=== PATIENT | female | born 1975 | race Caucasian/White ===

== ENCOUNTER 2016-12-12 14:05 | Outpatient (CLI) | payer OTHER ==
[~2016-12-12 14:05] MED LIST: ACETAMINOPHEN325 MG PO; BENADRYL25 MG PO; CLINICAL NUTRIENTS P OP; IBUPROFEN600 MG PO; IRON325 MG PO; LAMOTRIGINE ER100 MG PO; NICOTINE T7 MG/24 HR TOP; OXYCODONE IR PO; PERCOCET1 TA1 PO; TUMS500 MG PO; VENTOLIN HFA IN; VICODIN EQUIVAL1 TAB PO; XANAX0.5 MG PO; percocet PO
--- NOTE | 2016-12-12 14:49 | DIAGNOSTIC IMAGING REPORT ---
PROCEDURE: US COMPLETE PELVIC W/TRANSVAG INDICATION: PELVIC PAIN TECHNIQUE: Transabdominal and endovaginal hirsch scale and color Doppler sonographic images of the female pelvis were obtained. COMPARISON: Pelvic ultrasound 07/11 FINDINGS: TRANSABDOMINAL SCANS: The uterus is of normal size 5.9 x 4.3 cm Kidneys are normal. TRANSVAGINAL SCANS: The uterus is anteverted. Myometrium is normal. Focal areas of calcification are seen in the uterine fundus. The endometrium measures eight mm. Right ovary is normal measuring 2.8 x 2.3 x 2.1 cm. There is a 2 cm follicle on the right ovary. Good flow was noted. The left ovary is surgically absent. There is fluid filled bowel in the left adnexal region and peristalsis was visualized. IMPRESSION: 1. Normal uterus and ovaries and kidneys.
[2017-02-28] MEDS ORDERED: CHANTIX STARTIN0.5 & (16:43)
[2017-02-28] MEDS ORDERED: SUMATRIPTAN SU100 MG (16:43)
== END 2016-12-12 23:00 ==
LOC: US SRH 14:05
DX: N93.9 Abnormal uterine and vaginal bleeding, unspecified (principal)

== ENCOUNTER 2017-03-01 14:24 | Outpatient (CLI) | payer OTHER ==
[~2017-03-01 14:24] MED LIST changes: +CHANTIX STARTIN0.5 &; +SUMATRIPTAN SU100 MG
== END 2017-03-01 23:00 | disposition home or self-care (01) ==
LOC: RT SRH 14:24
DX: Z01.810 Encounter for preprocedural cardiovascular examination (principal); Z01.812 Encounter for preprocedural laboratory examination; N39.3 Stress incontinence (female) (male)
CPT/HCPCS: 90100; 94001; 94060; 95059

== ENCOUNTER 2017-03-05 06:56 | Day surgery (SDC) | payer OTHER ==
[2017-03-05] VITALS (9 sets, daily range): BP systolic 93–115; BP diastolic 49–74
[~2017-03-05] VITALS: Ht 170.2 cm; Wt 75.3 kg
--- NOTE | 2017-03-05 22:11 | Operative Report ---
Operative Report Date of Surgery: 03/05/17 Preoperate Diagnosis: 1. POPQ stage 2 uterovaginal prolapse 2. Stress incontinence Postoperative Diagnosis: St2 uterine prolapse/cystocele/ rectocele/stressincont/ ovarian cyst Surgeon: Erick Vergara MD Procedure Performed: 1. Vaginal hysterectomy and right ovarian cystectomy 2. High uterosacral ligament vaginal vault suspension and enterocele repair 3. Anterior repair with Xenform graft 4. Posterior repair with Xenform graft 5. TVT-obturator sling and cystoscopy Anesthesia: General Indications: Her assessment to date includes: 1. Rectocele N81.6 (618.04): 2. Cystocele, midline N81.11 (618.01): 3. Uterovaginal prolapse, incomplete N81.2 (618.2): 4. Female stress incontinence N39.3 (625.6): urodynamically-confirmed 5. Urge incontinence N39.41 (788.31): 6. Menorrhagia with irregular cycle N92.1 (626.2): The patient is a candidate for surgical management in the form of vaginal hysterectomy. with bilateral salpingectomy anterior repair and posterior repair with possible biologic graft augmentation, high uterosacral ligament vaginal vault suspension, enterocele repair and TVT-obturator sling. We discussed the need for smoking cessation prior to surgery and for 6 wk postop. She is currently down to 7 cig/d and will use Chantix (script given) and nicotine patches. I warned her of the potential side-effects (nausea, vomiting, H/A, neuropsychiatric s/e). The patient signed the consent form. She agreed with the risks, benefits, and alternatives to surgery. The risks included but not limited to recurrence or persistence of prolapse, recurrence of persistence of incontinence, development of voiding dysfunction, development of urinary urgency, urgency incontinence, frequency, and need for intermittent self-catheterization or prolonged indwelling catheterization, injury to other organs including bladder, bowel, nerves or blood vessels. Need for blood transfusion, need for temporary colostomy or urinary stenting. Development of vaginal scarring, dyspareunia, defecatory dysfunction, recurring pain, hematoma formation, urinary tract infection, cellulitis, necrotizing fascitis, and medical risks including myocardial infarction, stroke or VTE. She also understood the FDA warnings associated with the use of vaginal mesh (dysparunia, vaginal erosion, erosion into bowel/bladder/urethra, requiring further surgery to correct these complications). Risks of tobacco use periop include delayed healing, infection, lung/cardiac morbidity, CVA, [place]. The patient understood the risks and benefits and consented to surgery. Surgical Technique: Intraoperative findings: POPQ Stage 2 uterine prolapse/enterocele/cystocele/ rectocele to the level of the hymen, 3 cm simple right ovarian cyst, deficient pubovesical and rectovaginal fascia SURGICAL TECHNIQUE: The patient was brought to the operating room and was placed under general anesthesia. She was prepped and draped in the normal fashion for vaginal surgery with the legs in Yellofin stirrups. She was given a dose of IV ancef 1g intraoperatively. She received 200 mg oral pyridium intraoperatively. 1. Vaginal Hysterectomy and Right Ovarian Cystectomy: Lidocaine 1.0% with 1:100 ,000 of epinephrine was infiltrated pericervically. A pericervical incision was made with a scalpel. Anteriorly, the bladder was sharply dissected off the cervix. Posteriorly, the cul de sac was entered with sharp dissection. The bowels were packed with a mini-laparotomy sponge to protect them from the Ligasure instrument. The uterosacral ligaments were bilaterally clamped, divided and then tied in a transfixion fashion with 0-vicryl suture. We created a window in the uterovesical peritoneum via sharp dissection and the bladder was retracted upward with a right-angle retractor. The uterine arteries were tied using 0-vicryl suture. She has had a hx of bilateral tubal cauterization for sterilization purposes, and a left oophorectomy for ovarian cysts. The uterus was delivered posteriorly and the right utero-ovarian ligament was clamped (including the remnant of the utero-ovarian ligament on the left side as the patient had a previous left oophorectomy), coagulated, ligated and then tied using 0-Vicryl suture. Next we proceeded with a Right ovarian cystectomy. The right ovary contained a 3 cm simple appearing cyst that had no evidence of torsion. The ovarian cyst was fluid was collected using a syringe and needle and sent to pathology. The remaining decompressed cyst sac was excised sharply and sent to pathology. The remainder of the ovary appeared normal. We were unable to visualize any of the tubal remnants. The uterus/cervix was also sent to pathology. It was noted that the pedicles and cuff were hemostatic. 2. High uterosacral ligament vaginal vault suspension, cystoscopy, and enterocele repair: Several mini-laparotomy sponges were packed to retract the bowel upwards. A pair of Allis clamps were placed along the intraperitoneal portions of the vagina @ the 5 & 7 o'clock positions. Tension along these Allis clamps allowed for identification of the uterosacral ligaments bilaterally. A set of two, 0 Vicryl sutures were passed around each uterosacral ligament at the level of the ischial spine bilaterally, totalling four. While tension was applied to the vault sutures, cystoscopy was performed. Both ureteric orifices were noted to be functional by the brisk spillage of pyridium-stained urine. Next, two 3-0 Prolene sutures were placed transversely through the cul-de-sac peritoneum. This was performed while using a gloved finger in the rectum as to avoid penetrating the underlying rectal mucosa. Tying these sutures obliterated the enterocele. 3. Anterior colporrhaphy with Xenform graft augmentation: Lidocaine 1% with 1/ [id number] epinephrine was infiltrated along the anterior vaginal wall mucosa. A midline vertical incision was made through the anterior vaginal wall. The vaginal wall was dissected off the underlying pubocervical and pubovesical fascia. The dissection was extended laterally beyond the ischial pubic rami. It was noted that the pubocervical and pubovesical fascial tissues were deficient and thin. The cystocele was plicated in 2 layers, the first layer with 2-0 Vicryl suture in interrupted fashion, the second layer with 2-0 Tycron suture in an interrupted fashion. A Trapezoidal piece of Xenform graft was then incorporated atop the plicated area. Far laterally, the graft was secured to the obturator internus membrane. At the level of the bladder neck, an upside down triangular piece of graft was excised so that there was no over-support created along the level of the bladder neck. Apically, the graft was passed through 2 of the uterosacral ligament sutures. No anterior vaginal mucosa was needed to be excised. The high uterosacral ligament vaginal vault suspension sutures were passed through the planned apex of the vagina. The vagina was then reapproximated using 3-0 Vicryl suture in a running locked fashion. The vault suspension sutures were tied and this elevated the apex of the vagina high up into the hollow of the sacrum. 4. Posterior colpoperineorrhaphy with Xenform graft augmentation: A 1:1 mixture of Marcaine and Lidocaine 1% with 1:100,000 of epinephrine was infiltrated along the perineum and posterior vaginal wall mucosa. A thin chris-shaped wedge of perineum was excised. A Midline vertical incision was made through the posterior vagina with a scalpel. The vaginal mucosa was dissected off the underlying rectovaginal tissues. It was noted the fascial tissues were thin and deficient especially at the area of the apex. The rectocele was plicated in one layer using 2-0 Vicryl suture in an interrupted fashion. A rectangular piece of Xenform graft was then sutured above the plicated tissue. Apically, laterally and distally the graft was secured using 2-0 Vicryl suture in interrupted fashion. Small amount of excess posterior vaginal mucosa was excised. The vagina was then reapproximated using 3-0 Vicryl suture in a running locked fashion. Perineum was reapproximated using 2-0 Vicryl suture in an interrupted fashion. The skin was reapproximated using 3-0 Vicryl suture in a subcuticular fashion. 5. TVT-Obturator sling and cystoscopy. A 1:1 mixture of Marcaine and Lidocaine 1% with 1:100,000 of epinephrine was infiltrated along the anterior vaginal wall mucosa at the level of the mid urethra. Midline vertical incision was made at that level, 2 periurethral tunnels were created with Metzenbaum scissors. Two stab incisions were created at the skin at the groin at a level 2 cm superior to the external urethral meatus and 2 cm lateral to the fold created between the vulva and thigh. Fuller catheter had already been inserted. A butterfly guide was inserted into the right periurethral tunnel, a curved helical needle was inserted on top of the guide and rotated out to the ipsilateral skin incision. The same procedure was performed on the contralateral side. Next the Fuller catheter was removed. Cystoscopy was performed. There was no inadvertent penetration of the sling to the vagina, urethra or bladder. Pyridium-stained urine was noted to briskly efflux at the ureteric orifices bilaterally. The bladder appeared normal. The plastic sheaths of the sling were removed. The bladder was filled with 300 mL of sterile water. Using the Crede maneuver, sling tension was appropriately adjusted. Also a right angle clamp was allowed to easily pass behind the sling so that the sling was placed in a tension-free manner. The sling ends were cut at the level of the skin. The skin was reapproximated using Mastisol, Steri-Strips and band-aids. The vagina was reapproximated using 3-0 Vicryl suture in a running fashion. The estimated blood loss was approximately 250 mL. There were no complications. Her hips were deflexed periodically during the case. All sponges and instruments were accounted for.
[2017-03-06 02:30] VITALS: BP 129/81
[2017-03-06 07:06] VITALS: BP 117/81
--- NOTE | 2017-03-06 13:20 | Progress Note ---
Late Entry Date/Time Late Entry Date and Time Date of visit: 03/06/17 Time of visit: 0930 Subjective General AVSS Pain better controlled with IBuprofen and Percocet after vaginal packing removed failed voiding trial OR explained liquid po ambulatory Physical Exam Vital Signs / I&Os Vital Signs Date Time Temp Pulse Resp B/P Pulse O2 O2 Flow FiO2 Ox Delivery Rate 03/06 0730 110 20 98 2.0 03/06 0706 98.2 101 22 117/81 96 Nasal 2.0 Cannula 03/06 0230 98.8 97 20 129/81 99 Nasal 2.0 Cannula 03/06 0143 102 12 97 2.0 / 2358 Nasal 2.0 Cannula 03/05 2319 98.1 92 20 114/68 100 Nasal 2.0 Cannula 03/05 2100 12 97 2.0 / 1803 98.1 96 17 104/68 100 Nasal 2.0 Cannula /10 1737 101 12 100 2.0 04/10 1736 93 13 106/59 100 Nasal 2.0 Cannula 04/10 1701 95 18 106/58 100 Nasal 2.0 Cannula 04/10 1632 97.3 96 16 110/68 100 Nasal 2.0 Cannula 04/10 1615 99 16 114/74 100 Nasal 2.0 Cannula 04/10 1602 93 16 115/65 97 Nasal 2.0 Cannula 04/10 1553 86 17 99 2.0 04/10 1550 92 12 94/52 100 Nasal 2.0 Cannula 04/10 1535 97.5 86 12 93/49 100 Nasal 2.0 Cannula 04/10 1520 97 10 98/50 100 Nasal 3.0 Cannula 04/10 1515 90 23 96/48 100 Nasal 3.0 Cannula 04/10 1510 94 24 90/46 100 Nasal 3.0 Cannula 04/10 1505 91 22 104/54 100 Nasal 3.0 Cannula 04/10 1500 87 19 101/54 100 Nasal 3.0 Cannula 04/10 1455 93 19 100/51 100 Nasal 3.0 Cannula 04/10 1450 95 18 101/51 100 Nasal 3.0 Cannula 04/10 1445 90 18 100/54 100 Nasal 4.0 Cannula 04/10 1440 88 19 100/57 100 Nasal 3.0 Cannula 04/10 1435 89 10 100/59 100 Nasal 3.0 Cannula 04/10 1430 90 12 97/59 100 Nasal 3.0 Cannula 04/10 1425 93 12 105/64 100 Nasal 3.0 Cannula 03/05 1420 90 11 92/61 100 Nasal 3.0 Cannula 03/05 1415 88 9 97/58 100 Nasal 3.0 Cannula 03/05 1410 94 8 100/50 100 Nasal 3.0 Cannula 03/05 1405 88 9 103/57 100 Nasal 3.0 Cannula 03/05 1400 92 19 99/59 100 Nasal 3.0 Cannula 03/05 1359 98.1 96 17 99/59 100 Nasal 3.0 Cannula I&O 03/05 0800 03/05 1600 03/06 0000 Intake Total 4300 400 Output Total 675 750 Balance 3625 -350 Lungs Normal exam, Clear to auscultation Abdomen Normal bowel sounds, Soft LAB Results Laboratory Tests 03/06 0515 Hematology WBC (4.5 - 11.5 K/uL) 13.8 RBC (4.00 - 5.20 M/uL) 3.70 Hgb (12.0 - 16.0 gm/dL) 10.6 Hct (36.0 - 46.0 %) 32.1 MCV (80 - 100 fL) 87 MCH (26 - 34 pg) 29 RDW (11.6 - 14.8 %) 14.4 Neut % (Auto) (50 - 75 %) 76.5 Lymph % (Auto) (25 - 40 %) 17.7 [place] % (Auto) (3 - 14 %) 5.7 Eos % (Auto) (0 - 4 %) 0 Baso % (Auto) (0 - 2 %) 0.1 Plt Count, EDTA (150 - 400 K/uL) 303 PUBS MCHC (31 - 37 g/dL) 33 Assessment and Plan Problem List 1. Post-op pain Status Acute Plan Fuller teaching f/u with Dr. Vergara's MA in 1 wk for repeat voiding trial f/u in [address] Vergara
--- NOTE | 2017-03-06 13:25 | Provider's Discharge Care Plan ---
Problem, Goal, Plan Problem List 1. Post-op pain Goals: Improve function Instructions: Follow up as directed 2. Stress incontinence Goals: Improve function Instructions: Follow up as directed
--- NOTE | 2017-03-06 13:25 | Provider's Discharge Care Plan ---
Problem, Goal, Plan Problem List 1. Post-op pain Goals: Improve function Instructions: Follow up as directed 2. Stress incontinence Goals: Improve function Instructions: Follow up as directed
[2017-03-06 15:00] VITALS: BP 119/78
== END 2017-03-06 15:24 | disposition home or self-care (01) ==
LOC: SDC SRH 06:56 → SCU SRH 06:57 → SDC SRH 09:00 → EDSTATUS 09:00 → ACUTE2 SRH 15:29 → SDC SRH 03-06 15:24
PROVIDERS: Obstetrics & Gynecology
PROC: 0UB07ZZ Excision of Right Ovary, Via Natural or Artificial Opening (ICD-10-PCS; principal; 2017-03-05 09:00)
PROC: 0UT97ZZ Resection of Uterus, Via Natural or Artificial Opening (ICD-10-PCS; principal; 2017-03-05 09:00)
PROC: 0TSD0ZZ Reposition Urethra, Open Approach (ICD-10-PCS; principal; 2017-03-05 09:00)
PROC: 0UTC7ZZ Resection of Cervix, Via Natural or Artificial Opening (ICD-10-PCS; principal; 2017-03-05 09:00)
PROC: 0JUC0KZ Supplement of Pelvic Region Subcutaneous Tissue and Fascia with Nonautologous Tissue Substitute, Open Approach (ICD-10-PCS; principal; 2017-03-05 09:00)
DX: N81.2 Incomplete uterovaginal prolapse (principal); N81.6 Rectocele; N39.3 Stress incontinence (female) (male); N80.1 Endometriosis of ovary; Z72.0 Tobacco use

== ENCOUNTER 2017-04-19 15:26 | Emergency (ER) | payer OTHER ==
--- NOTE | 2017-04-19 16:22 | DIAGNOSTIC IMAGING REPORT ---
PROCEDURE: XR SHOULDER 2 OR MORE VW-LEFT INDICATION: TRAUMA/INJURY TECHNIQUE: Four views COMPARISON: None. FINDINGS: Osseous structures, joint spaces and soft tissues are normal. IMPRESSION: 1. Normal left shoulder.
--- NOTE | 2017-04-19 16:42 | DIAGNOSTIC IMAGING REPORT ---
PROCEDURE: CT HEAD WITHOUT CONTRAST INDICATION: [facility] TECHNIQUE: Axial CT images were acquired through the head. Coronal and sagittal reformations were created. COMPARISON: None. FINDINGS: No intracranial hemorrhage or extraaxial fluid collections. There is a small basal ganglia calcification on the left. This measures less than 5 mm in size. Ventricles are normal in size, shape and position. There is no mass, mass effect or midline shift. The hirsch-white matter differentiation is normal. There is no edema. The calvarium is intact. The paranasal sinuses and mastoid air cells are normally aerated. The extracranial soft tissues and orbits are normal. IMPRESSION: 1. No CT evidence of acute intracranial process. 2. Findings discussed with emergency department at 04:[address] scans at this facility use dose modulation, iterative reconstruction, and/or weight-based dosing when appropriate to reduce radiation dose to as low as reasonably achievable.
--- NOTE | 2017-04-19 16:42 | DIAGNOSTIC IMAGING REPORT ---
PROCEDURE: CT HEAD WITHOUT CONTRAST INDICATION: [facility] TECHNIQUE: Axial CT images were acquired through the head. Coronal and sagittal reformations were created. COMPARISON: None. FINDINGS: No intracranial hemorrhage or extraaxial fluid collections. There is a small basal ganglia calcification on the left. This measures less than 5 mm in size. Ventricles are normal in size, shape and position. There is no mass, mass effect or midline shift. The hirsch-white matter differentiation is normal. There is no edema. The calvarium is intact. The paranasal sinuses and mastoid air cells are normally aerated. The extracranial soft tissues and orbits are normal. IMPRESSION: 1. No CT evidence of acute intracranial process. 2. Findings discussed with emergency department at 04:[address] scans at this facility use dose modulation, iterative reconstruction, and/or weight-based dosing when appropriate to reduce radiation dose to as low as reasonably achievable.
--- NOTE | 2017-04-19 17:23 | DIAGNOSTIC IMAGING REPORT ---
PROCEDURE: CT CERVICAL SPINE W/O CONTRAST INDICATION: TRAUMA/INJURY TECHNIQUE: Noncontrast axial images with sagittal and coronal reformations. COMPARISON: None. FINDINGS: Osseous structures and disc spaces are normal. No evidence of an acute process or fracture. Alignment is normal. IMPRESSION: 1. Negative CT cervical spine. No evidence of an acute process or fracture.
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
--- NOTE | 2017-04-19 17:50 | ED ORDER SUMMARY ---
..... Patient: JED LAUREANO OrderSheet [facility] VisitID: [id number] [address] [place] [address] 41y, F Registration Date/Time: 04/19/2017 ORDER SHEET Weight: 73.0 kg (stated) Allergies: Gabapentin, Lyrica GENERAL ORDERS: CT Head wo Cont Urgent (15:51 04/19/2017 Feng Byers) (Ack 15:53 oTy) (16:17 EHassadelmis R.N.) Shoulder 2V or more Left Urgent (15:51 04/19/2017 Feng Byers) (Ack 15:53 Toy) (16:03 Paola R.N.) Pulse oximeter (15:52 04/19/2017 Feng Byers) (15:56 Paola R.N.) CT Cervical Spine wo Cont Urgent (17:01 04/19/2017 Feng Byers) (Ack 17:12 AMcQuoid ER Tech1) (17:20 MARGAUXoedelmy) MEDICATION ORDERS: IV FLUIDS: IV NS : initial bolus 1000 mL (1000 mL/hr), then none - for X1 (NOW) (15:52 04/19/2017 Feng Byers) (16:03 Paola R.N.) Morphine IV 8 mg (HIGH ALERT MEDICATION, NOW) (15:52 04/19/2017 Feng Byers) (16:04 Paola R.N.) Dilaudid IV 1 mg (HIGH ALERT MEDICATION, NOW) (16:56 04/19/2017 Feng Byers) (17:02 Paola R.N.) ORDER SHEET NOTES: [Electronically signed by Shai Moran Dr. (06:59 04/23/2017)] [Electronically signed by Valorie Roberto R.N. (13:00 04/24/2017)] [Electronically locked/signed by Valorie Roberto R.N. (13:00 04/24/2017)]
--- NOTE | 2017-04-19 17:50 | ED ORDER SUMMARY ---
..... Patient: JED LAUREANO OrderSheet [facility] VisitID: [id number] [address] [place] [address] 41y, F Registration Date/Time: 04/19/2017 ORDER SHEET Weight: 73.0 kg (stated) Allergies: Gabapentin, Lyrica GENERAL ORDERS: CT Head wo Cont Urgent (15:51 04/19/2017 Feng Byers) (Ack 15:53 Toy) (16:17 EHassadelmis R.N.) Shoulder 2V or more Left Urgent (15:51 04/19/2017 Feng Byers) (Ack 15:53 Toy) (16:03 Paola R.N.) Pulse oximeter (15:52 04/19/2017 Feng Byers) (15:56 Paola R.N.) CT Cervical Spine wo Cont Urgent (17:01 04/19/2017 Feng Byers) (Ack 17:12 AMcQuoid ER Tech1) (17:20 MARGAUXoedelmy) MEDICATION ORDERS: IV FLUIDS: IV NS : initial bolus 1000 mL (1000 mL/hr), then none - for X1 (NOW) (15:52 04/19/2017 Feng Byers) (16:03 Paola R.N.) Morphine IV 8 mg (HIGH ALERT MEDICATION, NOW) (15:52 04/19/2017 Feng Byers) (16:04 Paola R.N.) Dilaudid IV 1 mg (HIGH ALERT MEDICATION, NOW) (16:56 04/19/2017 Feng Byers) (17:02 Paola R.N.) ORDER SHEET NOTES: [Electronically signed by Shai Moran Dr. (06:59 04/23/2017)] [Electronically signed by Valorie Robreto R.N. (13:00 04/24/2017)] [Electronically locked/signed by Valorie Roberto R.N. (13:00 04/24/2017)]
--- NOTE | 2017-04-24 13:01 | ED MED RECONCILIATION SUMMARY ---
Patient: JED LAUREANO Medication Reconciliation Report [facility] VisitID: [id number] [address] [place] [address] 41y, F Registration Date/Time: 04/19/2017 Weight: 73.0 kg Height/Length: 67 in. BMI: 25.2 ALLERGIES: Gabapentin, Lyrica The patient's Home Medications are listed below: CONTINUE TAKING THE FOLLOWING MEDICATIONS: Acetaminophen Oral The source(s) of the original Home Medication information: patient The following Medications were given to the patient in the Emergency Department: IV NS IV Fluids bolus 0, then 1000 mL/hr, administered: 04/19/2017 4:03:00 PM Morphine [IVP] IVP 8 mg, administered: 04/19/2017 4:04:00 PM Dilaudid [IVP] IVP 1 mg, administered: 04/19/2017 5:02:00 PM The following Medications were prescribed to the patient: Percocet 5 mg/325 mg: take 1-2 tablets orally every 6 hours as needed for pain. Dispense fifteen (15). No refill. Substitution is permissible. -- Shai Moran Dr.
--- NOTE | 2017-04-24 13:01 | ED MAR SUMMARY ---
..... Medication Administration Record [facility] [address] [place] [address] Patient: JED LAUREANO Visit ID: [id number] 41y, F Weight: 73.0 kg Height/Length: 67 in BMI: 25.2 ALLERGIES: Gabapentin, Lyrica Start 16:03 04/19/2017 Lorena Loza R.N., Stop 17:57 04/19/2017 Lorena Loza R.N. Medication Administered: IV NS (SALINE), Dose: IV Fluids over 1 hour(s), Rate: 1000 mL/hr, Dispensed: 1000 mL bag, Site: #1 left AC. Medication Ordered: IV NS : initial bolus 1000 mL (1000 mL/hr), then none - for X1 (NOW). Given 16:04 04/19/2017 Lorena Loza R.N. Medication Administered: MORPHINE [IVP], Dose: 8 mg IVP over 1 minute(s), Site: #1 left AC. Medication Ordered: Morphine IV 8 mg (HIGH ALERT MEDICATION, NOW). Given 17:02 04/19/2017 Lorena Loza R.N. Medication Administered: DILAUDID [IVP] (HYDROMORPHONE HCL PF), Dose: 1 mg IVP over 30 second(s), Site: #1 left AC. Medication Ordered: Dilaudid IV 1 mg (HIGH ALERT MEDICATION, NOW).
--- NOTE | 2017-04-24 13:01 | ED MAR SUMMARY ---
..... Medication Administration Record [facility] [address] [place] [address] Patient: JED LAUREANO Visit ID: [id number] 41y, F Weight: 73.0 kg Height/Length: 67 in BMI: 25.2 ALLERGIES: Gabapentin, Lyrica Start 16:03 04/19/2017 Lorena Loza R.N., Stop 17:57 04/19/2017 Lorena Lzoa R.N. Medication Administered: IV NS (SALINE), Dose: IV Fluids over 1 hour(s), Rate: 1000 mL/hr, Dispensed: 1000 mL bag, Site: #1 left AC. Medication Ordered: IV NS : initial bolus 1000 mL (1000 mL/hr), then none - for X1 (NOW). Given 16:04 04/19/2017 Lorena Loza R.N. Medication Administered: MORPHINE [IVP], Dose: 8 mg IVP over 1 minute(s), Site: #1 left AC. Medication Ordered: Morphine IV 8 mg (HIGH ALERT MEDICATION, NOW). Given 17:02 04/19/2017 Lorena Loza R.N. Medication Administered: DILAUDID [IVP] (HYDROMORPHONE HCL PF), Dose: 1 mg IVP over 30 second(s), Site: #1 left AC. Medication Ordered: Dilaudid IV 1 mg (HIGH ALERT MEDICATION, NOW).
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
--- NOTE | 2017-04-24 13:01 | ED MED RECONCILIATION SUMMARY ---
Patient: JED LAUREANO Medication Reconciliation Report [facility] VisitID: [id number] [address] [place] [address] 41y, F Registration Date/Time: 04/19/2017 Weight: 73.0 kg Height/Length: 67 in. BMI: 25.2 ALLERGIES: Gabapentin, Lyrica The patient's Home Medications are listed below: CONTINUE TAKING THE FOLLOWING MEDICATIONS: Acetaminophen Oral The source(s) of the original Home Medication information: patient The following Medications were given to the patient in the Emergency Department: IV NS IV Fluids bolus 0, then 1000 mL/hr, administered: 04/19/2017 4:03:00 PM Morphine [IVP] IVP 8 mg, administered: 04/19/2017 4:04:00 PM Dilaudid [IVP] IVP 1 mg, administered: 04/19/2017 5:02:00 PM The following Medications were prescribed to the patient: Percocet 5 mg/325 mg: take 1-2 tablets orally every 6 hours as needed for pain. Dispense fifteen (15). No refill. Substitution is permissible. -- Shai Moran Dr.
== END 2017-04-19 18:05 | disposition home or self-care (01) ==
LOC: ED SRH 15:26
DX: S16.1XXA Strain of muscle, fascia and tendon at neck level, initial encounter (principal); S09.90XA Unspecified injury of head, initial encounter; R41.3 Other amnesia; V43.52XA Car driver injured in collision with other type car in traffic accident, initial encounter; Y93.89 Activity, other specified; Y92.410 Unspecified street and highway as the place of occurrence of the external cause; K21.9 Gastro-esophageal reflux disease without esophagitis